=== PATIENT | male | born 1985 | race Two or more races ===

== ENCOUNTER 2023-12-04 13:43 | Emergency (ER) | payer OTHER ==
[2023-12-04 13:50] VITALS: BP 120/83; PULSE 75; RESP 18; TEMP 98.2; BMI 31.4
[2023-12-04] MEDS ORDERED: IBUPROFEN 600 MG TABLET (FP) PO ONE (14:39)
[2023-12-04] MEDS: IBUPROFEN 600 MG TABLET (FP) PO ONE (14:40)
== END 2023-12-04 16:51 | disposition home or self-care (01) ==
LOC: JERFT 13:43 → JER 13:43 → JERFT 16:51
DX: S83.005A Unspecified dislocation of left patella, initial encounter (principal); M25.562 Pain in left knee; X50.1XXA Overexertion from prolonged static or awkward postures, initial encounter
CPT/HCPCS: 73562-TC-LT-FY; 99283-25